=== PATIENT | male | born 1960 | race Caucasian/White ===

== ENCOUNTER 2017-02-12 22:21 | Inpatient (IN) | payer OTHER, MEDICARE ==
[~2017-02-12] VITALS: Ht 180.3 cm; Wt 85.0 kg
[2017-02-12 22:29] VITALS: BP 272/143; PULSE 114; RESP 26; TEMP 98.2; O2SAT 96
[2017-02-12] MEDS ORDERED: ATEN100T PO (22:37)
[2017-02-12] MEDS ORDERED: LISI-515 PO (22:37)
[2017-02-12] MEDS ORDERED: TEMA30CA PO (22:37)
[2017-02-12] MEDS ORDERED: ZOLP10TA3 PO (22:37)
[2017-02-12] MEDS ORDERED: ENDO10TA8 PO (22:37)
[2017-02-12] MEDS ORDERED: MORP1TAB26 PO (22:37)
[2017-02-12] MEDS ORDERED: SODIUM CHLORIDE 0.9% FLUSH 10 ML FLUSH IVF PRN (22:45)
--- NOTE | 2017-02-12 22:52 | RADRPT ---
EXAM DATE/TIME: 02/12/2017 22:34 [facility] COMPARISON: No previous studies available for comparison. INDICATIONS : Lower right chest pain. Coughing and vomiting blood. MEDICAL HISTORY : None. SURGICAL HISTORY : None. ENCOUNTER: Initial ACUITY: 1 day PAIN SCORE: 9/10 LOCATION: Bilateral chest FINDINGS: A single view of the chest demonstrates the lungs to be symmetrically aerated without evidence of mas s, infiltrate or effusion. The cardiomediastinal contours are unremarkable. Osseous structures are intact. CONCLUSION: The lungs are clear. Adeel Rowe MD on February 12, 2017 at 22:51 Board Certified Radiologist. This report was verified electronically.
[2017-02-12 23:15] VITALS: RESP 26; O2SAT 95
[2017-02-12 23:20] LABS: AUTOMATED NEUTROPHIL # 8.3 TH/MM3 (1.8-7.7); BASOPHIL % 0.2 % (0.0-2.0); EOSINOPHIL # 0.2 TH/MM3 (0-0.4); EOSINOPHIL % 1.7 % (0.0-4.0); HEMATOCRIT 45.6 % (39.0-51.0); HEMO FLAGS DIFF FINAL; LYMPH % 31.6 % (9.0-44.0); LYMPHOCYTE # 4.4 TH/MM3 (1.0-4.8); MEAN CELL VOLUME 91.6 FL (80.0-100.0); MEAN CORPUSCULAR HEMOGLOBIN 30.8 PG (27.0-34.0); MEAN CORPUSCULAR HGB CONC 33.6 % (32.0-36.0); MONO % 6.4 % (0.0-8.0); NEUT % 60.1 % (16.0-70.0); PLATELET COUNT 305 TH/MM3 (150-450); RED BLOOD COUNT 4.98 MIL/MM3 (4.50-5.90); RED CELL DISTRIBUTION WIDTH 13.5 % (11.6-17.2); WHITE BLOOD COUNT 13.9 TH/MM3 (4.0-11.0)
[2017-02-12] MEDS ORDERED: IOHEXOL 350 MG/ML 10 ML VIAL (for RAD DIAG) IV ONE (23:20)
[2017-02-12 23:21] VITALS: BP 232/124; PULSE 101; RESP 33; O2SAT 98
[2017-02-12] MEDS ORDERED: NITROGLYCERIN-DEXTROSE INJ 250 ML IV ONE (23:30)
--- NOTE | 2017-02-12 23:31 | RADRPT ---
EXAM DATE/TIME: 02/12/2017 23:07 [facility] COMPARISON: No previous studies available for comparison. INDICATIONS : Chest pain and hemoptysis. IV CONTRAST: 65 cc Omnipaque 350 (iohexol) IV RADIATION DOSE: 12.22 CTDIvol (mGy) MEDICAL HISTORY : Cardiovascular disease. SURGICAL HISTORY : None. ENCOUNTER: Initial ACUITY: 1 day PAIN SCALE: 7/10 LOCATION: Bilateral chest TECHNIQUE: Volumetric scanning of the chest was performed using a pulmonary embolism protocol MIP images were re constructed. Using automated exposure control and adjustment of the mA and/or kV according to patien t size, radiation dose was kept as low as reasonably achievable to obtain optimal diagnostic quality images. DICOM format image data is available electronically for review and comparison. Follow-up recommendations for incidentally detected pulmonary nodules are based at a minimum on nodul e size and patient risk factors according to Fleischner Society Guidelines. FINDINGS: Examination of the pulmonary vasculature demonstrates good filling of the main, lobar and segmental b ranches. There are no filling defects to suggest pulmonary embolism. Multiplanar reconstructions are also unremarkable. There is alveolar disease in the left lower lobe characteristic of pneumonia. Minimal right basilar o pacity is present as well. There are centrilobular emphysematous changes throughout both lungs. No pl eural effusions are identified. Examination of the mediastinum demonstrates no abnormally enlarged lymph nodes by CT criteria. No axi llary or hilar abnormalities are identified. Coronary artery calcifications are not present. There is a nodule in the left adrenal gland likely reflecting adenoma measuring 10 mm. CONCLUSION: 1. No evidence of pulmonary embolism. 2. Left lower lobe pneumonia Samm Clemente MD on February 12, 2017 at 23:26 Board Certified Radiologist. This report was verified electronically.
[2017-02-12 23:36] LABS: APTT (PATIENT) 25.8 SEC (24.3-30.1)
[2017-02-12 23:45] VITALS: BP 215/114; PULSE 95; RESP 23; O2SAT 95
[2017-02-12] MEDS ORDERED: AZITHROMYCIN INJ 500 MG in SODIUM CHLOR 0.9% 250 ML INJ 250 ML IV ONE (23:45)
[2017-02-12] MEDS ORDERED: cefTRIAXone INJ 1,000 MG in SODIUM CHLORIDE 0.9% INJ 100 ML IV ONE (23:45)
[2017-02-12 23:49] LABS: BICARBONATE 28.8 MEQ/L (21.0-32.0); POTASSIUM 3.5 MEQ/L (3.5-5.1)
[2017-02-12 23:51] LABS: INDIRECT BILIRUBIN 0.3 MG/DL (0.0-0.8); TOTAL BILIRUBIN ADULT 0.4 MG/DL (0.2-1.0)
[2017-02-13] VITALS (15 sets, daily range): BP systolic 116–211; BP diastolic 75–138; PULSE 60–96; RESP 16–24; TEMP 97.5–98.4; O2SAT 93–100
--- NOTE | 2017-02-13 00:31 | PD ---
HPI Chief Complaint: GI Complaint Time Seen by Provider: 22:35 Travel History International Travel<30 days: No Contact w/Intl Traveler<30days: No Traveled to known affect area: No History of Present Illness HPI The patient's 56 years old. He arrives due to hemoptysis for about 12 hours or so. It was first noticed while he was gardening. He denies chest pain and shortness of breath. The patient denies fever. No similar prior episode has occurred. the patient smokes about 2 packs of cigarettes per week. He denies a history of pulmonary disease of which he is aware. He states total quantity of bloody expectorant is about 1 ounce. He reports noncompliance with atenolol lisinopril for about 2 weeks. PFSH Past Medical History Heart Rhythm Problems: Yes Cardiovascular Problems: Yes Gastrointestinal Disorders: Yes Hypertension: Yes Medical other: Yes (CHRONIC PAIN) Respiratory: Yes Social History Alcohol Use: No Tobacco Use: Yes Substance Use: No Allergies-Medications (Allergen,Severity, Reaction): Coded Allergies: No Known Allergies (Unverified , 02/12/17) Reported Meds & Prescriptions Reported Meds & Active Scripts Active Reported Zolpidem (Zolpidem Tartrate) 10 Mg Tab 10 Mg PO HS PRN Temazepam 30 Mg Cap 30 Mg PO HS PRN Morphine ER (Morphine Sulfate) 60 Mg Tab 60 Mg PO BID Endocet (Oxycodone-Acetaminophen) 10-325 mg Tab 2 Tab PO Q6HR Lisinopril 20 Mg Tab 20 Mg PO DAILY Atenolol 100 Mg Tab 100 Mg PO DAILY Review of Systems Except as stated in HPI: all other systems reviewed are Neg Physical Exam Narrative GENERAL: Patient is 56 years old, speaking full sentences, occasional bloody expectorant SKIN: Warm and dry. HEAD: Atraumatic. Normocephalic. EYES: Pupils equal and round. No scleral icterus. No injection or drainage. ENT: No nasal bleeding or discharge. Mucous membranes pink and moist. NECK: Trachea midline. No JVD. CARDIOVASCULAR: Heart rate approximately 100. Regular rhythm. RESPIRATORY: Coarse breath sounds towards the base on the left. No tachypnea. GASTROINTESTINAL: Abdomen soft, non-tender, nondistended. Hepatic and splenic margins not palpable. MUSCULOSKELETAL: Extremities without clubbing, cyanosis, or edema. No obvious deformities. NEUROLOGICAL: Awake and alert. No obvious cranial nerve deficits. Motor grossly within normal limits. Five out of 5 muscle strength in the arms and legs. Normal speech. PSYCHIATRIC: Appropriate mood and affect; insight and judgment normal. Data Data Last Documented VS Vital Signs Date Time Temp Pulse Resp B/P Pulse Ox O2 Delivery O2 Flow Rate FiO2 02/13/17 00:00 88 24 184/104 98 Nasal Cannula 2 02/12/17 22:29 98.2 Vital signs reviewed Orders Complete Blood Count With Diff (02/12/17 22:35) Basic Metabolic Panel (Bmp) (02/12/17 22:35) D-Dimer (02/12/17 22:35) Iv Access Insert/Monitor (02/12/17 22:35) Electrocardiogram (02/12/17 22:35) Ecg Monitoring (02/12/17 22:35) Oximetry (02/12/17 22:35) Oxygen Administration (02/12/17 22:35) Chest, Single Ap (02/12/17 22:35) Sodium Chloride 0.9% Flush (Ns Flush) (02/12/17 22:45) Lipase (02/12/17 22:35) Ct Pulmonary Angiogram (02/12/17 22:35) Hepatic Functional Panel (02/12/17 22:35) Prothrombin Time / Inr (Pt) (02/12/17 22:35) Act Partial Throm Time (Ptt) (02/12/17 22:35) Nitroglycerin-Dextrose Inj (Nitroglyceri (02/12/17 23:30) Iohexol 350 Inj (Omnipaque 350 Inj) (02/12/17 23:20) Ceftriaxone Inj (Rocephin Inj) (02/12/17 23:45) Azithromycin Inj (Zithromax Inj) (02/12/17 23:45) Labs Laboratory Tests Test 02/12/17 23:00 White Blood Count 13.9 TH/MM3 Red Blood Count 4.98 MIL/MM3 Hemoglobin 15.3 GM/DL Hematocrit 45.6 % Mean Corpuscular Volume 91.6 FL Mean Corpuscular Hemoglobin 30.8 PG Mean Corpuscular Hemoglobin 33.6 % Concent Red Cell Distribution Width 13.5 % Platelet Count 305 TH/MM3 Mean Platelet Volume 6.5 FL Neutrophils (%) (Auto) 60.1 % Lymphocytes (%) (Auto) 31.6 % Monocytes (%) (Auto) 6.4 % Eosinophils (%) (Auto) 1.7 % Basophils (%) (Auto) 0.2 % Neutrophils # (Auto) 8.3 TH/MM3 Lymphocytes # (Auto) 4.4 TH/MM3 Monocytes # (Auto) 0.9 TH/MM3 Eosinophils # (Auto) 0.2 TH/MM3 Basophils # (Auto) 0.0 TH/MM3 CBC Comment DIFF FINAL Differential Comment Prothrombin Time 11.0 SEC Prothromb Time International 1.0 RATIO Ratio Activated Partial 25.8 SEC Thromboplast Time D-Dimer Quantitative (PE/DVT) 0.20 MG/L FEU Sodium Level 139 MEQ/L Potassium Level 3.5 MEQ/L Chloride Level 102 MEQ/L Carbon Dioxide Level 28.8 MEQ/L Anion Gap 8 MEQ/L Blood Urea Nitrogen 11 MG/DL Creatinine 0.80 MG/DL Estimat Glomerular Filtration 100 ML/MIN Rate Random Glucose 89 MG/DL Calcium Level 9.0 MG/DL Total Bilirubin 0.4 MG/DL Direct Bilirubin 0.1 MG/DL Indirect Bilirubin 0.3 MG/DL Aspartate Amino Transf 13 U/L (AST/SGOT) Alanine Aminotransferase 21 U/L (ALT/SGPT) Alkaline Phosphatase 88 U/L Total Protein 7.4 GM/DL Albumin 4.2 GM/DL Lipase 104 U/L [facility] Medical Decision Making Medical Screen Exam Complete: Yes Emergency Medical Condition: Yes Medical Record Reviewed: Yes Differential Diagnosis Massive hemoptysis, hemoptysis, pneumonia, anemia, hypertensive emergency Narrative Course CBC & BMP Diagram 02/12/17 23:00 LFTs normal Lipase normal INR 1.0 PTT 25.8 DDimer 0.20 Last Impressions Chest X-Ray 02/12/172234 Signed Impressions: Service Date/Time: February 22:34 - CONCLUSION: The lungs are clear. Adeel Rowe MD CT Angiography 02/12/172234 Signed Impressions: Service Date/Time: February 23:07 - CONCLUSION: 1. No evidence of pulmonary embolism. 2. Left lower lobe pneumonia Samm Clemente MD 2228 Hypertension on arrival 270/120 decreased 2321 BP decreased to 230/124, nitro drip started and blood pressure promptly decreased to 184/100 EKG reveals sinus tachycardia with a rate of [address] elevation or T-wave inversion cefepime/azithromycin started case d/w Dr House Critical Care Narrative Aggregate critical care time was 35 minutes. Time to perform other separately billable procedures was not included in the critical care time. My time did not include minutes spent treating any other patients simultaneously or on activities that did not directly contribute to the patient's treatment. The services I provided to this patient were to treat and/or prevent clinically significant deterioration that could result in: Multiorgan injury, hypertensive emergency I provided critical care services requiring my management, as noted below: Chart data review, documentation time, medication orders and management, vital sign assessments/reviewing monitor data, ordering and reviewing lab tests, ordering and interpreting/reviewing x-rays and diagnostic studies, care of the patient and discussion of the patient with the admitting physicians. Diagnosis Primary Impression: Hypertensive emergency Additional Impression: PNA (pneumonia) Qualified Code: J18.1 - Pneumonia of left lower lobe due to infectious organism Admitting Information Admitting Physician Requests: Admit Nolberto Cee MD Feb 13, 2017 00:30
[2017-02-13] MEDS ORDERED: LACTULOSE SYRUP 20 GM/30 ML CUP PO PRN (00:45)
[2017-02-13] MEDS ORDERED: BISACODYL 10 MG SUPP RECTAL PRN (00:45)
[2017-02-13] MEDS ORDERED: SODIUM CHLORIDE 0.9% FLUSH 10 ML FLUSH IV FLUSH PRN (00:45)
[2017-02-13] MEDS ORDERED: MORPHINE SULFATE 4 MG/ML INJ IV PRN (00:45)
[2017-02-13] MEDS ORDERED: ONDANSETRON HCL 4 MG/2 ML VIAL IVP PRN (00:45)
[2017-02-13] MEDS ORDERED: SENNOSIDES 8.6 MG TAB PO PRN (00:45)
[2017-02-13] MEDS ORDERED: ACETAMINOPHEN/HYDROcodone 325 MG/5 MG TAB PO PRN (00:45)
[2017-02-13] MEDS ORDERED: ACETAMINOPHEN 325 MG TAB PO PRN (00:45)
[2017-02-13] MEDS ORDERED: MAGNESIUM HYDROXIDE SUSP 30 ML CUP PO PRN (00:45)
[2017-02-13] MEDS ORDERED: ZOLPIDEM TARTRATE 10 MG TAB PO PRN (01:00)
[2017-02-13] MEDS ORDERED: CHLORHEXIDINE GLUCONATE 2 % 1 PACK (2 CLOTHS) TOP PRN (02:00)
[2017-02-13] MEDS ORDERED: NITROGLYCERIN-DEXTROSE INJ 250 ML IV PRN (02:00)
[2017-02-13] MEDS ORDERED: MISCELLANEOUS NURSING INFORMATION XX SCH (02:00)
[2017-02-13] MEDS: CHLORHEXIDINE GLUCONATE 2 % 1 PACK (2 CLOTHS) TOP SCH (03:37)
--- NOTE | 2017-02-13 03:50 | HHI.HP ---
HPI Service [facility] Primary Care Physician Elliot Alejandra MD Admission Diagnosis Hypertensive Emergency; Hemoptysis Diagnoses: (1) Hypertensive urgency Diagnosis: Principal (2) PNA (pneumonia) Diagnosis: Principal (3) Hemoptysis Diagnosis: Principal (4) Tobacco abuse Diagnosis: Principal Travel History International Travel<30 Days: No Contact w/Intl Traveler <30 Da: No Traveled to Known Affected Are: No History of Present Illness This is a 56-year-old male with a PMH of HTN, Chronic Back Pain and Tobacco Abuse who presented to the ER with complaints of hemoptysis starting earlier today. Patient with multiple other complaints, reports onset of right flank and RLQ pain 1wk ago and believed he was "having a GI Bleed", however denies h/ o GI Bleed in the past, no melena, no BRBPR. Then states he went outside to do some gardening when "humidity hit me" and caused him to cough, noted hemoptysis w/ small amount of blood at which time he states he believed "I was septic". When asked about pt's knowledge of medical terminology, he states he studied pathology, however he's not a pathologist. On arrival, BP 272/143, HR 114. States his BP is "always high", on multiple medications however states he stopped all meds 1wk ago due to abdominal pain. Started on Nitro gtt in ER with improvement of BP, currently 174/103, HR 96. WBC 13.9. Chemistry unremarkable. INR normal. D-dimer negative. CXR with no acute findings. CTA Pulm negative for PE, positive for LLL PNA. S/p Rocephin/Zithro in ER. Review of Systems Except as stated in HPI: all other systems reviewed are Neg ROS: 14 point review of systems otherwise negative. Past Family Social History Past Medical History PMH: HTN, Chronic Back Pain and Tobacco Abuse Past Surgical History PAST SURGICAL HISTORY: Orthopedic Surgery Allergies: Coded Allergies: No Known Allergies (Unverified , 02/12/17) Family History PAST FAMILY HISTORY: Reviewed. No h/o DM or CAD Social History PAST SOCIAL HISTORY: Negative for alcohol or drugs. +Tobacco Abuse. Physical Exam Vital Signs Vital Signs Date Time Temp Pulse Resp B/P Pulse Ox O2 Delivery O2 Flow Rate FiO2 02/13/17 01:15 96 22 174/103 98 Nasal Cannula 2 02/13/17 01:00 95 22 205/94 97 Nasal Cannula 2 02/13/17 00:25 94 23 188/104 98 Nasal Cannula 2 02/13/17 00:00 88 24 184/104 98 Nasal Cannula 2 02/12/17 23:45 95 23 215/114 95 Nasal Cannula 2 02/12/17 23:22 98 Nasal Cannula 2 02/12/17 23:21 101 33 232/124 98 Nasal Cannula 2 02/12/17 23:15 26 95 Room Air 02/12/17 22:29 98.2 114 26 272/143 96 Physical Exam PE: GENERAL: Middle-aged white male in no acute distress. HEENT: PERRLA, EOMI. No scleral icterus or conjunctival pallor. No lid lag or facial droop. CARDIOVASCULAR: Regular rate and rhythm. No obvious murmurs to auscultation. No chest tenderness to palpation. RESPIRATORY: No obvious rhonchi or wheezing. Clear to auscultation. Breath sounds equal bilaterally. GASTROINTESTINAL: Abdomen soft, non-tender, nondistended. BS normal. MUSCULOSKELETAL: Extremities without clubbing, cyanosis, or edema. No obvious deformities. NEUROLOGICAL: Awake, alert and oriented x4. No focal neurologic deficits. Moving both upper and lower extremities spontaneously. Laboratory Laboratory Tests Test 02/12/17 23:00 White Blood Count 13.9 Red Blood Count 4.98 Hemoglobin 15.3 Hematocrit 45.6 Mean Corpuscular Volume 91.6 Mean Corpuscular Hemoglobin 30.8 Mean Corpuscular Hemoglobin 33.6 Concent Red Cell Distribution Width 13.5 Platelet Count 305 Mean Platelet Volume 6.5 Neutrophils (%) (Auto) 60.1 Lymphocytes (%) (Auto) 31.6 Monocytes (%) (Auto) 6.4 Eosinophils (%) (Auto) 1.7 Basophils (%) (Auto) 0.2 Neutrophils # (Auto) 8.3 Lymphocytes # (Auto) 4.4 Monocytes # (Auto) 0.9 Eosinophils # (Auto) 0.2 Basophils # (Auto) 0.0 CBC Comment DIFF FINAL Differential Comment Prothrombin Time 11.0 Prothromb Time International 1.0 Ratio Activated Partial 25.8 Thromboplast Time D-Dimer Quantitative (PE/DVT) 0.20 Sodium Level 139 Potassium Level 3.5 Chloride Level 102 Carbon Dioxide Level 28.8 Anion Gap 8 Blood Urea Nitrogen 11 Creatinine 0.80 Estimat Glomerular Filtration 100 Rate Random Glucose 89 Calcium Level 9.0 Total Bilirubin 0.4 Direct Bilirubin 0.1 Indirect Bilirubin 0.3 Aspartate Amino Transf 13 (AST/SGOT) Alanine Aminotransferase 21 (ALT/SGPT) Alkaline Phosphatase 88 Total Protein 7.4 Albumin 4.2 Lipase 104 Result Diagram: 02/12/17229902/12/172299 Assessment and Plan Problem List: (1) Hypertensive urgency ICD Code: I16.0 Status: Acute (2) PNA (pneumonia) ICD Code: J18.9 Status: Acute (3) Hemoptysis ICD Code: R04.2 Status: Acute (4) Tobacco abuse ICD Code: Z72.0 Status: Acute Assessment and Plan A/P: 1. Hypertensive Urgency: Secondary to Non-compliance, reports stopping all BP medications 1wk ago. BP 272/143, HR 114, s/p Nitro gtt in ER, currently BP 174/ 103, HR 96. Resume home medications, wean off Nitro gtt as tolerated. Pt counselled on importance of compliance w/ medications and close follow up w/ PCP for possible adjustment of meds as outpatient. 2. PNA: CXR w/ no acute findings, CTA Pulm negative for PE, LLL PNA, images reviewed by me. S/p Rocephin/Zithro in ER, will continue w/ IV Abx, DuoNeb prn. 3. Hemoptysis: reports episode of small hemoptysis, CTA negative for PE as above, no h/o or evidence of CHF, likely secondary to acute PNA. Check Sputum/ Cultures, continue w/ IV Abx as above. 4. Tobacco Abuse: Pt counselled, NicoDerm/Ativan prn if needed. 5. DVT Prophylaxis: SCD/Teds. 6. Social work for d/c planning as needed. 7. Case discussed w/ ER physician at length. Physician Certification 2 Midnight Certification Type: Admission for Inpatient Services Order for Inpatient Services The services are ordered in accordance with Medicare regulations or non- Medicare payer requirements, as applicable. In the case of services not specified as inpatient-only, they are appropriately provided as inpatient services in accordance with the 2-midnight benchmark. Estimated LOS (days): 2 days is the estimated time the patient will need to remain in the hospital, assuming treatment plan goals are met and no additional complications. Post-Hospital Plan: Not yet determined Problem Qualifiers (1) PNA (pneumonia): Qualified Code: J18.1 - Pneumonia of left lower lobe due to infectious organism Brittany House MD Feb 13, 2017 03:50
[2017-02-13] MEDS ORDERED: ENALAPRILAT 1.25 MG/ML VIAL IV PUSH PRN (07:45)
[2017-02-13] MEDS: BUDESONIDE-FORMOTEROL 160/4.5 MCG INHALER INH SCH ×2 (08:25→22:03)
[2017-02-13] MEDS: DOCUSATE SODIUM 50 MG/SENNA 8.6 MG TAB PO SCH ×2 (08:26→21:00)
[2017-02-13] MEDS: LISINOPRIL 20 MG TAB PO SCH (08:26)
[2017-02-13] MEDS: ATENOLOL 100 MG TAB PO SCH (08:26)
[2017-02-13] MEDS: SODIUM CHLORIDE 0.9% FLUSH 10 ML FLUSH IV FLUSH SCH ×2 (08:26→22:10)
[2017-02-13] MEDS ORDERED: NALOXONE HCL 0.4 MG/ML AMP IV PRN (09:00)
[2017-02-13] MEDS: MORPHINE SULFATE 60 MG CONTROLLED RELEASE TAB PO SCH ×2 (09:29→22:00)
--- NOTE | 2017-02-13 09:32 | EKG ---
Date Performed: 02/12/2017 Time Performed: 22:39:07 PTAGE: 56 years EKG: SINUS TACHYCARDIA POSSIBLE LEFT ATRIAL ENLARGEMENT ABNORMAL RHYTHM ECG NO PREVIOUS TRACING DOCTOR: Samm Christianson Interpretating Date/Time 02/13/2017 09:30:55
[2017-02-13] MEDS: oxyCODONE/ACETAMINOPHEN 10 MG/325 MG TAB PO SCH ×3 (12:23→23:09)
--- NOTE | 2017-02-13 20:37 | RADRPT ---
EXAM DATE/TIME: 02/13/2017 20:06 [facility] COMPARISON: No previous studies available for comparison. INDICATIONS : Pain in lower back after rehabing on exercise ball. Patient states pain radiates to right groin area and pain originates in L5 area. MEDICAL HISTORY : None. SURGICAL HISTORY : None. ENCOUNTER: Initial ACUITY: 2 days PAIN SCORE: 8/10 LOCATION: L-Spine FINDINGS: Two view examination was performed. There are five non-rib bearing vertebral bodies. The vertebral bodies are in normal alignment without evidence of subluxation or scoliosis. The disc spaces are nadeem ntained. The pedicles are intact. Bony mineralization is normal. No fracture is identified. CONCLUSION: No evidence of compression deformity or spondylolisthesis. Adeel Rowe MD on February 13, 2017 at 20:35 Board Certified Radiologist. This report was verified electronically.
[2017-02-13] MEDS: TEMAZEPAM 15 MG CAP PO PRN (22:10)
[2017-02-13] MEDS: cefTRIAXone INJ 1,000 MG in SODIUM CHLORIDE 0.9% INJ 100 ML IV SCH (22:11)
[2017-02-13] MEDS: AZITHROMYCIN INJ 500 MG in SODIUM CHLOR 0.9% 250 ML INJ 250 ML IV SCH (23:09)
[2017-02-14] VITALS (8 sets, daily range): BP systolic 130–166; BP diastolic 69–102; PULSE 53–77; RESP 16–19; TEMP 96–98.7; O2SAT 93–99
[2017-02-14] MEDS: CHLORHEXIDINE GLUCONATE 2 % 1 PACK (2 CLOTHS) TOP SCH ×2 (03:46→21:52)
[2017-02-14] MEDS: oxyCODONE/ACETAMINOPHEN 10 MG/325 MG TAB PO SCH ×4 (05:29→23:03)
[2017-02-14 06:19] LABS: AUTOMATED NEUTROPHIL # 6.4 TH/MM3 (1.8-7.7); BASOPHIL % 0.4 % (0.0-2.0); EOSINOPHIL # 0.3 TH/MM3 (0-0.4); EOSINOPHIL % 2.5 % (0.0-4.0); HEMATOCRIT 38.4 % (39.0-51.0); HEMO FLAGS DIFF FINAL; LYMPH % 36.4 % (9.0-44.0); LYMPHOCYTE # 4.3 TH/MM3 (1.0-4.8); MEAN CELL VOLUME 93.5 FL (80.0-100.0); MEAN CORPUSCULAR HEMOGLOBIN 30.8 PG (27.0-34.0); MONO % 6.5 % (0.0-8.0); NEUT % 54.2 % (16.0-70.0); PLATELET COUNT 259 TH/MM3 (150-450); RED BLOOD COUNT 4.11 MIL/MM3 (4.50-5.90); RED CELL DISTRIBUTION WIDTH 13.8 % (11.6-17.2); WHITE BLOOD COUNT 11.9 TH/MM3 (4.0-11.0)
[2017-02-14 07:15] LABS: ALKALINE PHOSPHATASE 72 U/L (45-117); ALT (GPT) 14 U/L (12-78); ANION GAP 8 MEQ/L (5-15); AST (GOT) 11 U/L (15-37); BLOOD UREA NITROGEN 17 MG/DL (7-18); CHLORIDE 104 MEQ/L (98-107); GLOMERULAR FILTRATION RATE 84 ML/MIN (>89); POTASSIUM 4.2 MEQ/L (3.5-5.1); SODIUM (NA) 139 MEQ/L (136-145); TOTAL BILIRUBIN ADULT 0.5 MG/DL (0.2-1.0)
[2017-02-14] MEDS: DOCUSATE SODIUM 50 MG/SENNA 8.6 MG TAB PO SCH ×2 (08:40→20:29)
[2017-02-14] MEDS: ATENOLOL 100 MG TAB PO SCH (08:40)
[2017-02-14] MEDS: SODIUM CHLORIDE 0.9% FLUSH 10 ML FLUSH IV FLUSH SCH ×2 (08:40→20:30)
[2017-02-14] MEDS: LISINOPRIL 20 MG TAB PO SCH (08:40)
[2017-02-14] MEDS: MORPHINE SULFATE 60 MG CONTROLLED RELEASE TAB PO SCH ×2 (08:40→20:28)
[2017-02-14] MEDS: BUDESONIDE-FORMOTEROL 160/4.5 MCG INHALER INH SCH ×2 (08:42→20:27)
[2017-02-14] MEDS ORDERED: DIATRIZOATE MEGLUM/DIATRIZOATE SOD 9 ML CUP PO ONE (09:30)
[2017-02-14] MEDS ORDERED: PNEUMOCOCCAL POLYVALENT INJ 25 MCG/0.5 ML SYR IM ONE (10:00)
[2017-02-14] MEDS ORDERED: INFLUENZA VIRUS VACCINE (QUADRIVALENT) 0.5 ML SYR IM ONE (10:00)
--- NOTE | 2017-02-14 10:21 | HHI.PR ---
Subjective Remarks Blood pressure control improving. Patient was coughing up blood 3 yesterday but has no hemoptysis thus far today. Ambulation still difficult due to abdominal and back pain. Lumbar spine shows no acute findings such as compression fracture. CT abdomen is pending. Objective Vital Signs Date Time Temp Pulse Resp B/P Pulse Ox O2 Delivery O2 Flow Rate FiO2 02/14/17 08:00 69 02/14/17 08:00 97.2 63 17 134/77 97 02/14/17 06:20 55 02/14/17 04:00 98.7 63 16 130/74 95 02/14/17 00:00 97.6 77 16 133/87 94 02/13/17 20:00 97.5 64 16 116/76 93 02/13/17 18:00 71 02/13/17 16:00 61 02/13/17 16:00 98.4 61 22 135/88 100 02/13/17 14:00 64 02/13/17 12:00 60 02/13/17 12:00 98.3 60 18 133/75 97 I/O 02/13/17 02/13/17 02/13/17 02/14/17 02/14/17 02/14/17 07:00 15:00 23:00 07:00 15:00 23:00 Intake Total 141 ml 504 ml 300 ml Output Total 500 ml 350 ml Balance 141 ml 4 ml -50 ml Intake Oral 100 ml 500 ml IV Total 41 ml 4 ml 300 ml Output Urine Total 500 ml 350 ml # Voids 0 1 0 # Bowel Movements 0 Result Diagram: 02/14/17 0504 02/14/17 0504 Objective Remarks GENERAL: NAD, A&Ox3 HEAD: Normocephalic. NECK: Supple, trachea midline. No lymphadenopathy. EYES: No scleral icterus. No injection or drainage. CARDIOVASCULAR: Regular rate and rhythm without murmurs, gallops, or rubs. RESPIRATORY: Breath sounds equal bilaterally. No accessory muscle use. GASTROINTESTINAL: Abdomen soft, non-tender, nondistended. MUSCULOSKELETAL: No cyanosis, or edema. Tenderness at back. SKIN: Warm and dry. NEURO: No focal neurological deficitis. A/P Problem List: (1) PNA (pneumonia) ICD Code: J18.9 (2) Hypertensive urgency ICD Code: I16.0 (3) Hemoptysis ICD Code: R04.2 (4) Hypertensive emergency ICD Code: I16.1 (5) Tobacco abuse ICD Code: Z72.0 Assessment and Plan Assessment and Plan 56-year-old male admitted secondary to hemoptysis and hypertensive emergency. He is discovered to have pneumonia. Hemoptysis Improving Follow till hemoptysis is resolved. Avoiding blood thinners Hypertensive emergency Etiology for hemoptysis may be related to hypertension Blood pressure medications reinitiated and adjusted and currently patient has good control. Monitor for any recurrence Community-acquired pneumonia Continue Rocephin and azithromycin Follow CBC White blood cell count is improving thus far Back pain Pelvic pain, abdominal pain Lumbar x-rays show no etiology CT abdomen pending Nicotine dependence NicoDerm as needed DVT prophylaxis SCDs Problem Qualifiers (1) PNA (pneumonia): Qualified Code: J18.1 - Pneumonia of left lower lobe due to infectious organism Nolberto Corea MD Feb 14, 2017 10:21
[2017-02-14] MEDS ORDERED: IOHEXOL 350 MG/ML 10 ML VIAL (for RAD DIAG) IV ONE (11:52)
--- NOTE | 2017-02-14 12:10 | RADRPT ---
EXAM DATE/TIME: 02/14/2017 11:50 [facility] COMPARISON: CT PULMONARY ANGIOGRAM, February 12, 2017, 23:07. INDICATIONS : Abdomen pain. IV CONTRAST: 97 cc Omnipaque 350 (iohexol) IV ORAL CONTRAST: Prescribed oral contrast ingested. RADIATION DOSE: 14.39 CTDIvol (mGy) MEDICAL HISTORY : Hernia. Hypertension. Chronic obstructive pulmonary disease. SURGICAL HISTORY : Hernia repair. ENCOUNTER: Initial ACUITY: 3 days PAIN SCALE: 5/10 LOCATION: Bilateral lower quadrant TECHNIQUE: Volumetric scanning of the abdomen and pelvis was performed. Using automated exposure control and ad justment of the mA and/or kV according to patient size, radiation dose was kept as low as reasonably achievable to obtain optimal diagnostic quality images. DICOM format image data is available electro nically for review and comparison. FINDINGS: LOWER LUNGS: Mild infiltrate density left lung base. LIVER: Liver is slightly fatty infiltrated. No focal hepatic lesion. SPLEEN: Normal size without lesion. PANCREAS: Within normal limits. KIDNEYS: Normal in size and shape. There is no mass, stone or hydronephrosis. ADRENAL GLANDS: Within normal limits. VASCULAR: Abdominal aorta is tortuous and mildly atherosclerotic. No aneurysm. BOWEL/MESENTERY: The stomach, small bowel, and colon demonstrate no acute abnormality. There is no free intraperitone al air or fluid. ABDOMINAL WALL: Within normal limits. RETROPERITONEUM: There is no lymphadenopathy. BLADDER: No wall thickening or mass. REPRODUCTIVE: Within normal limits. INGUINAL: There is no lymphadenopathy or hernia. MUSCULOSKELETAL: No acute bony abnormality demonstrated. CONCLUSION: 1. No obstruction or acute inflammatory changes. 2. Mild fatty infiltration of the liver. 3. Tortuosity and mild atherosclerosis of the abdominal aorta. 4. Mild left base infiltrate again seen. Juan Zhao MD on February 14, 2017 at 12:06 Board Certified Radiologist. This report was verified electronically.
[2017-02-14] MEDS: cefTRIAXone INJ 1,000 MG in SODIUM CHLORIDE 0.9% INJ 100 ML IV SCH (20:31)
[2017-02-14] MEDS: AZITHROMYCIN INJ 500 MG in SODIUM CHLOR 0.9% 250 ML INJ 250 ML IV SCH (23:00)
[2017-02-14] MEDS: TEMAZEPAM 15 MG CAP PO PRN (23:01)
[2017-02-15] VITALS (9 sets, daily range): BP systolic 132–171; BP diastolic 75–113; PULSE 50–78; RESP 18–20; TEMP 96.2–98.1; O2SAT 95–99
[2017-02-15] MEDS: oxyCODONE/ACETAMINOPHEN 10 MG/325 MG TAB PO SCH ×4 (06:02→23:15)
[2017-02-15] MEDS ORDERED: GADODIAMIDE PF 287 MG/ML 20 ML VIAL (for RAD MRI) IV ONE (08:12)
[2017-02-15] MEDS: SODIUM CHLORIDE 0.9% FLUSH 10 ML FLUSH IV FLUSH SCH ×2 (08:32→19:50)
[2017-02-15] MEDS: DOCUSATE SODIUM 50 MG/SENNA 8.6 MG TAB PO SCH ×2 (08:32→19:53)
[2017-02-15] MEDS: ATENOLOL 100 MG TAB PO SCH (08:32)
[2017-02-15] MEDS: LISINOPRIL 20 MG TAB PO SCH (08:32)
[2017-02-15] MEDS: MORPHINE SULFATE 60 MG CONTROLLED RELEASE TAB PO SCH ×2 (08:32→19:50)
[2017-02-15] MEDS: BUDESONIDE-FORMOTEROL 160/4.5 MCG INHALER INH SCH ×2 (08:32→19:52)
--- NOTE | 2017-02-15 08:35 | RADRPT ---
EXAM DATE/TIME: 02/15/2017 07:49 [facility] COMPARISON: CT ABDOMEN & PELVIS W CONTRAST, February 14, 2017, 11:50. SPINE LUMBAR LTD (AP & LAT), February 13, 2017 , 20:06. INDICATIONS : Pain. Right lower back and hip. CONTRAST: 17 cc Omniscan (gadodiamide) IV MEDICAL HISTORY : Hypertension. SURGICAL HISTORY : Orthopedic. ENCOUNTER: Initial ACUITY: 3 day PAIN SCORE: 2/10 LOCATION: Paraspinal TECHNIQUE: Multiplanar multisequence MRI of the lumbar spine was performed with and without contrast. FINDINGS: The most caudal appearing lumbar vertebra is numbered as L5. VERTEBRAE: Bone marrow signal is within normal limits. No fracture or compression deformity is present. There is minimal anterolisthesis of L3 on L4. CONUS: Normal level and configuration. POST CONTRAST: No abnormal areas of contrast enhancement are seen. T12-L1: No disc herniation, canal stenosis, or neural foraminal stenosis. L1-L2: No disc herniation, canal stenosis, or neural foraminal stenosis. L2-L3: There is a mild to moderate size diffuse disc bulge with mild facet and ligamentum flavum hypertrophy . Lateral recesses are effaced. There is no significant spinal canal stenosis or neural foraminal av rowing. L3-L4: There is severe facet and ligamentum flavum hypertrophy with fluid in the facet joints and minimal as sociated anterolisthesis. A moderate to large diffuse disc bulge is present with central disc protrus ion. There is a moderate spinal canal stenosis with near complete loss of CSF signal around the nerve roots. There is mild neural foraminal narrowing bilaterally. L4-L5: There is a moderate size diffuse disc bulge with mild facet and ligamentum flavum hypertrophy. Latera l recesses are effaced. No spinal canal stenosis or neuroforaminal narrowing is identified. L5-S1: There is a central to left paracentral disc protrusion effacing left lateral recess and likely with m ass effect on the descending left S1 nerve root. Otherwise, spinal canal is not significantly narrowe d. There is no neuroforaminal narrowing. There is facet hypertrophy bilaterally, right greater than l eft. The visualized paraspinous structures demonstrate no acute finding. CONCLUSION: 1. Moderate multilevel degenerative change throughout the lumbar spine. At L3-4 there is severe facet hypertrophy causing minimal anterolisthesis and the facet hypertrophy along with a diffuse disc bulg e causes moderate spinal canal stenosis. 2. There is a moderate size central left paracentral disc protrusion at L5-S1 with mass effect on the left S1 nerve root. Juan Kelly MD on February 15, 2017 at 8:28 Board Certified Radiologist. This report was verified electronically.
[2017-02-15] MEDS: cloNIDine HCL 0.1 MG TAB PO PRN (12:27)
--- NOTE | 2017-02-15 14:43 | HHI.PR ---
Subjective Remarks No improvement in intermittent lower back and abdominal pains. GI workup was negative. MRI of the spine shows an area of moderate stenosis and an area of mass effect in the lumbosacral region. Patient can also elicit symptoms by standing on his left foot or by doing a straight leg raise of either leg. Blood pressures are not yet controlled. Patient requests to be evaluated for renal artery stenosis. He has coughed up some blood today but this is thicker and darker and appears to be residual/old blood from his previous hemoptysis. Objective Vital Signs Date Time Temp Pulse Resp B/P Pulse Ox O2 Delivery O2 Flow Rate FiO2 02/15/17 14:34 163/88 02/15/17 12:00 98.1 61 18 171/113 98 02/15/17 08:00 96.7 59 18 169/91 97 02/15/17 08:00 Room Air 02/15/17 08:00 69 02/15/17 04:28 96.9 63 18 148/75 95 02/15/17 00:34 96.6 78 18 146/83 97 02/14/17 20:00 Room Air 02/14/17 20:00 97.1 70 18 138/80 97 02/14/17 20:00 53 02/14/17 16:00 97.9 63 18 140/78 97 I/O 02/14/17 02/14/17 02/14/17 02/15/17 02/15/17 02/15/17 07:00 15:00 23:00 07:00 15:00 23:00 Intake Total 300 ml 240 ml Output Total 350 ml 500 ml 300 ml Balance -50 ml -260 ml -300 ml Intake Oral 240 ml IV Total 300 ml Output Urine Total 350 ml 500 ml 300 ml # Voids 1 # Bowel Movements 0 0 Result Diagram: 02/14/17 0504 02/14/17 0504 Objective Remarks GENERAL: NAD, A&Ox3 HEAD: Normocephalic. NECK: Supple, trachea midline. No lymphadenopathy. EYES: No scleral icterus. No injection or drainage. CARDIOVASCULAR: Regular rate and rhythm without murmurs, gallops, or rubs. RESPIRATORY: Breath sounds equal bilaterally. No accessory muscle use. GASTROINTESTINAL: Abdomen soft, non-tender, nondistended. MUSCULOSKELETAL: No cyanosis, or edema. Tenderness at back. SKIN: Warm and dry. NEURO: No focal neurological deficitis. A/P Problem List: (1) PNA (pneumonia) ICD Code: J18.9 (2) Hypertensive urgency ICD Code: I16.0 (3) Hemoptysis ICD Code: R04.2 (4) Hypertensive emergency ICD Code: I16.1 (5) Tobacco abuse ICD Code: Z72.0 Assessment and Plan Assessment and Plan 56-year-old male admitted secondary to hemoptysis and hypertensive emergency. He is discovered to have pneumonia. Obtain renal SPECT scan to evaluate for renal artery stenosis. Consult neurosurgery regarding the patient's lumbosacral findings on MRI and persistent symptoms. Continue to follow blood pressures. Blood pressure treatments adjusted. Hemoptysis Improving Follow till hemoptysis is resolved. Avoiding blood thinners Hypertensive emergency Etiology for hemoptysis may be related to hypertension Blood pressure medications reinitiated and adjusted and currently patient has good control. Monitor for any recurrence Community-acquired pneumonia Continue Rocephin and azithromycin Follow CBC White blood cell count is improving thus far Back pain Pelvic pain, abdominal pain Lumbar x-rays show no etiology CT abdomen pending Nicotine dependence NicoDerm as needed DVT prophylaxis SCDs Problem Qualifiers (1) PNA (pneumonia): Qualified Code: J18.1 - Pneumonia of left lower lobe due to infectious organism Nolberto Corea MD Feb 15, 2017 14:43
[2017-02-15] MEDS: cefTRIAXone INJ 1,000 MG in SODIUM CHLORIDE 0.9% INJ 100 ML IV SCH (21:59)
[2017-02-15] MEDS: TEMAZEPAM 15 MG CAP PO PRN (21:59)
[2017-02-15] MEDS: AZITHROMYCIN INJ 500 MG in SODIUM CHLOR 0.9% 250 ML INJ 250 ML IV SCH (23:12)
[2017-02-16 04:00] VITALS: BP 183/82; PULSE 58; RESP 20; TEMP 95.7; O2SAT 98
[2017-02-16] MEDS: CHLORHEXIDINE GLUCONATE 2 % 1 PACK (2 CLOTHS) TOP SCH ×2 (04:00→23:35)
[2017-02-16] MEDS: oxyCODONE/ACETAMINOPHEN 10 MG/325 MG TAB PO SCH ×4 (05:39→23:41)
[2017-02-16 08:00] VITALS: BP 223/120; PULSE 59; RESP 18; TEMP 97.7; O2SAT 100
[2017-02-16] MEDS: BUDESONIDE-FORMOTEROL 160/4.5 MCG INHALER INH SCH ×2 (08:19→20:28)
[2017-02-16] MEDS: LISINOPRIL 20 MG TAB PO SCH (08:19)
[2017-02-16] MEDS: DOCUSATE SODIUM 50 MG/SENNA 8.6 MG TAB PO SCH ×2 (08:19→20:27)
[2017-02-16 08:20] VITALS: PULSE 59
[2017-02-16] MEDS: MORPHINE SULFATE 60 MG CONTROLLED RELEASE TAB PO SCH ×2 (08:20→20:27)
[2017-02-16] MEDS: SODIUM CHLORIDE 0.9% FLUSH 10 ML FLUSH IV FLUSH SCH ×2 (08:20→20:28)
[2017-02-16] MEDS: ATENOLOL 100 MG TAB PO SCH (08:20)
[2017-02-16 12:00] VITALS: BP 179/91; PULSE 52; RESP 18; TEMP 96.9; O2SAT 99
--- NOTE | 2017-02-16 13:40 | PD.CONS ---
[facility] Service Neurosurgery Consult Requested By [place] emergency department Reason for Consult Low back pain with radiculopathy Primary Care Physician Elliot Alejandra MD History of Present Illness This is a 56-year-old male with history of HTN, Chronic Back Pain who presented to the ER with complaints of hemoptysis since today. He reports in addition multiple other complaints, new onset of right flank and RLQ pain 1wk ago and believed he was "having a GI Bleed". Denies melena. He noted new onset of hemoptysis w/ small amount of blood. On arrival, his blood pressure was 272/143, HR 114. States his BP is "always high", on multiple medications however states he stopped all meds 1wk ago due to abdominal pain. Started on Nitro drip in ER with improvement. CTA Pulm negative for PE, positive for left lower lobe pneumonia. He is admitting physician was concerned about possible renal artery stenosis and order an MR angiography of the renal artery. He underwent an MRI of the lumbar spine which show significant spondylosis with bulging disc and stenosis at L4 5 and L5-S1. Neurosurgical consultation was requested Review of Systems Constitutional: DENIES: Diaphoretic episodes, Fatigue, Fever, Weight gain, Weight loss, Chills, Dizziness, Change in appetite, Night Sweats Endocrine: DENIES: Heat/cold intolerance, Polydipsia, Polyuria, Polyphagia Eyes: DENIES: Blurred vision, Diplopia, Eye inflammation, Eye pain, Vision loss , Photosensitivity, Double Vision Ears, nose, mouth, throat: DENIES: Tinnitus, Hearing loss, Vertigo, Nasal discharge, Oral lesions, Throat pain, Hoarseness, Ear Pain, Running Nose, Epistaxis, Sinus Pain, Toothache, Odynophagia Respiratory: COMPLAINS OF: Apneas, Sputum production, DENIES: Cough, Snoring, Wheezing, Hemoptysis, Shortness of breath Cardiovascular: DENIES: Palpitations, Syncope, Dyspnea on Exertion, PND, Lower Extremity Edema, Orthopnea, Claudication Gastrointestinal: DENIES: Abdominal pain, Black stools, Bloody stools, Constipation, Diarrhea, Nausea, Vomiting, Difficulty Swallowing, Anorexia Genitourinary: DENIES: Sexual dysfunction, Urinary frequency, Urinary incontinence, Urgency, Hematuria, Dysuria, Nocturia, Penile Discharge, Testicular Pain, Testicular Swelling Musculoskeletal: COMPLAINS OF: Joint pain, Back pain, DENIES: Muscle aches, Stiffness, Joint Swelling, Neck pain Integumentary: DENIES: Abnormal pigmentation, Nail changes, Pruritus, Rash Hematologic/lymphatic: DENIES: Bruising, Lymphadenopathy Immunologic/allergic: DENIES: Eczema, Urticaria Neurologic: DENIES: Abnormal gait, Headache, Localized weakness, Paresthesias, Seizures, Speech Problems, Tremor, Poor Balance Past Family Social History Allergies: Coded Allergies: No Known Allergies (Unverified , 02/12/17) Past Medical History HTN, Chronic Back Pain Active Ordered Medications Current Medications Sodium Chloride 2 ml 2 ml UNSCH PRN IVF FLUSH AFTER USING IV ACCESS; Start 02/12 at 22:45; Stop 02/13/17 at 07:59; Status DC Nitroglycerin/ Dextrose (Nitroglycerin-Dextrose Inj) 250 ml @ 0 mls/hr TITRATE ONCE IV Last administered on 02/12/17 23:40; Start 02/12/17 at 23:30; Stop at 23:31; Status DC Iohexol 65 ml 65 ml STK-MED ONCE IV Last administered on 02/12/17 23:20; Start 02/12/17 at 23:20; Stop 02/12/17 at 23:21; Status DC Ceftriaxone Sodium 1000 mg/ Sodium Chloride 100 ml @ 200 mls/hr ONCE ONCE IV Last administered on 02/13/17 00:29; Start 02/12/17 at 23:45; Stop 02/13/17 at 00: 14; Status DC Azithromycin 500 mg/Sodium Chloride 250 ml @ 250 mls/hr ONCE ONCE IV Last administered on 02/13/17 00:29; Start 02/12/17 at 23:45; Stop 02/13/17 at 00:44; Status DC Ceftriaxone Sodium 1000 mg/ Sodium Chloride 100 ml @ 200 mls/hr Q24H IV Last administered on 02/15/17 21:59; Start 02/13/17 at 22:00 Azithromycin/ Sodium Chloride (Zithromax Inj/ NS 250 ml Inj) 250 ml @ 250 mls/ hr Q24H IV Last administered on 02/15/17 23:12; Start 02/13/17 at 23:00 Budesonide/ Formoterol Fumarate (Symbicort 160-4.5 Inh) 2 puff Q12HR INH Last administered on 02/16/17 08:19; Start 02/13/17 at 09:00 Sodium Chloride (NS Flush) 2 ml UNSCH PRN IV FLUSH FLUSH AFTER USING IV ACCESS ; Start 02/13/17 at 00:45 Sodium Chloride (NS Flush) 2 ml BID IV FLUSH Last administered on 02/16/17 08: 20; Start 02/13/17 at 09:00 Ondansetron HCl (Zofran Inj) 4 mg Q6H PRN IVP NAUSEA OR VOMITING Last administered on 02/13/17 03:48; Start 02/13/17 at 00:45 Acetaminophen (Tylenol) 650 mg Q6H PRN PO FEVER/PAIN SCALE 1 TO 2; Start at 00:45 Acetaminophen/ Hydrocodone Bitart ([place] 5-325 Mg) 1 tab Q4H PRN PO PAIN SCALE 3 TO 5 Last administered on 02/13/17 03:48; Start 02/13/17 at 00:45; Stop 02/13/17 at 07:41; Status DC Morphine Sulfate (Morphine Inj) 2 mg Q3H PRN IV Pain 6-10; Start 02/13/17 at 00: 45; Stop 02/13/17 at 07:41; Status DC Senna/Docusate Sodium (Leslie-Colace) 1 tab BID PO Last administered on 02/15/17 08:32; Start 02/13/17 at 09:00 Magnesium Hydroxide (Milk Of Magnesia Liq) 30 ml Q12H PRN PO MILD - MODERATE CONSTIPATION Last administered on 02/15/17 08:36; Start 02/13/17 at 00:45 Sennosides (Senokot) 17.2 mg Q12H PRN PO MODERATE - SEVERE CONSTIPATION; Start 02/13/17 at 00:45 Bisacodyl (Dulcolax Supp) 10 mg DAILY PRN RECTAL SEVERE CONSITIPATION; Start at 00:45 Lactulose (Lactulose Liq) 30 ml DAILY PRN PO SEVERE CONSITIPATION; Start at 00:45 Atenolol (Tenormin) 100 mg DAILY PO Last administered on 02/16/17 08:20; Start 02/13/17 at 09:00 Zolpidem Tartrate 10 mg 10 mg HS PRN PO INSOMNIA; Start 02/13/17 at 01:00 Nitroglycerin/ Dextrose (Nitroglycerin-Dextrose Inj) 250 ml @ 0 mls/hr TITRATE PRN IV BP >180 Last administered on 02/13/17 02:03; Start 02/13/17 at 02:00 Miscellaneous Information 1 Q361D XX Last administered on 02/13/17 02:00; Start 02/13/17 at 02:00 Chlorhexidine Gluconate (Chlorhexidine 2% Cloth) 3 pack Taper DAILY@04 TOP Last administered on 02/13/17 03:37; Start 02/13/17 at 04:00; Stop 02/09/18 at 03 :59 Chlorhexidine Gluconate (Chlorhexidine 2% Cloth) 3 pack UNSCH PRN TOP HYGIENIC CARE; Start 02/13/17 at 02:00 Clonidine (Catapres) 0.1 mg Q6H PRN PO SBP>160, DBP>90 Last administered on 02/15 12:27; Start 02/13/17 at 07:45 Enalaprilat (Vasotec Inj) 1.25 mg Q6H PRN IV PUSH SBP>160, DBP>90; Start at 07:45 Lisinopril (Prinivil) 20 mg DAILY PO Last administered on 02/15/17 08:32; Start 02/13/17 at 09:00; Stop 02/15/17 at 14:51; Status DC Morphine Sulfate (Oramorph Sr) 60 mg BID PO Last administered on 02/16/17 08:20 ; Start 02/13/17 at 09:00 Oxycodone/ Acetaminophen (Percocet 10-325 Mg) 2 tab Q6HR PO Last administered on 02/16/17 11:48; Start 02/13/17 at 12:00 Temazepam (Restoril) 30 mg HS PRN PO INSOMNIA Last administered on 02/15/17 21: 59; Start 02/13/17 at 07:45 Naloxone HCl (Narcan Inj) 0.4 mg UNSCH PRN IV RESPIRATORY RATE LESS THAN 10; Start 02/13/17 at 09:00 Pneumococcal Polyvalent Vaccine (Pneumovax-23 Inj) 25 mcg ONCE ONCE IM ; Start 02/14/17 at 10:00; Stop 02/14/17 at 10:01; Status DC Influenza Virus Vaccine (Flu (Quadrivalent) Vaccine Inj) 0.5 ml ONCE ONCE IM ; Start 02/14/17 at 10:00; Stop 02/14/17 at 10:01; Status Cancel Diatrizoate Meglum/ Diatrizoate Sod ( Gastrolivia Liq) 18 ml ONCE ONCE PO Last administered on 02/14/17 09:37; Start 02/14/17 at 09:30; Stop 02/14/17 at 09: 31; Status DC Iohexol (Omnipaque 350 Inj) 97 ml STK-MED ONCE IV Last administered on 11:52; Start 02/14/17 at 11:52; Stop 02/14/17 at 11:53; Status DC Gadodiamide (Omniscan Pf Inj) 18 ml STK-MED ONCE IV Last administered on 08:12; Start 02/15/17 at 08:12; Stop 02/15/17 at 08:13; Status DC Lisinopril (Prinivil) 40 mg DAILY PO Last administered on 02/16/17 08:19; Start 02/16/17 at 09:00 Family History His family history was reviewed and is noncontributory to his injury. No history of familial disorders cerebral aneurysms brain tumors Social History He is a smoker. Denies alcohol abuse. She denies illicit drug use Physical Exam Vital Signs Vital Signs Date Time Temp Pulse Resp B/P Pulse Ox O2 Delivery O2 Flow Rate FiO2 02/16/17 12:00 96.9 52 18 179/91 99 02/16/17 08:20 Room Air 02/16/17 08:20 59 02/16/17 08:00 97.7 59 18 223/120 100 02/16/17 04:00 95.7 58 20 183/82 98 02/16/17 03:53 Room Air 02/15/17 20:00 96.2 57 20 132/88 97 02/15/17 18:58 50 02/15/17 16:00 96.9 58 18 147/91 99 02/15/17 14:34 163/88 02/15/17 14:00 97.9 67 18 163/88 97 Physical Exam The patient is alert, awake and oriented to time, place and person. Speech is fluent. Higher cognitive functions are normal. Cranial nerve examination demonstrates the pupils to be equal, round, and reactive to light. Extra-ocular movements are intact. Facial motor and sensory function are normal and symmetrical. Gross hearing is intact, bilaterally. The uvula is midline and elevates symmetrically with the soft palate. Sternocleidomastoid and trapezius muscles have normal and symmetrical strength. Other cranial nerves are intact. Neck is soft and supple. Cervical spine has a full range of motion in anterior flexion, extension, lateral bending, and rotation without pain. There is no tenderness to palpation to the spinous processes or paraspinal muscles. Muscle testing reveals normal bulk and tone overall without rigidity, spasticity , fasciculations, or atrophy. Muscle strength is 5/5 in all muscle groups of both upper extremities including deltoid, biceps, triceps, brachioradialis, wrist extension and final operations technician. In the lower extremities, strength is 5/5 in both iliopsoas, quadriceps, hamstrings, 4+/5 in his right dorsiflexion, and extensor hallicus longus. Sensory examination is intact to light touch and sharp/dull discrimination in both the upper extremities, and decreased in a right L5 and S1 dermatome Deep tendon reflexes are 2+ and symmetrical in the biceps, triceps, and brachioradialis, bilaterally, in the upper extremities. In the lower extremities , the patellar and Achilles are 2+, bilaterally. There is a bilateral plantar flexion response. Hoffmanns sign is negative. There is no clonus or other abnormal reflexes noted. Cerebellar examination is intact to [id number] test, rapid rhythmic alternating motion. There is no dysmetria, dysdiadochokinesia, truncal ataxia Result Diagram: 02/14/17 0504 02/14/17 0504 Imaging Last Impressions Lumbar Spine MRI 02/15/17 0000 Signed Impressions: Service Date/Time: Wednesday, February 15, 2017 07:49 - CONCLUSION: 1. Moderate multilevel degenerative change throughout the lumbar spine. At L3-4 there is severe facet hypertrophy causing minimal anterolisthesis and the facet hypertrophy along with a diffuse disc bulge causes moderate spinal canal stenosis. 2. There is a moderate size central left paracentral disc protrusion at L5-S1 with mass effect on the left S1 nerve root. Juan Kelly MD Abdomen/Pelvis CT 02/14/17 Signed Impressions: Service Date/Time: Tuesday, February 14, 2017 11:50 - CONCLUSION: 1. No obstruction or acute inflammatory changes. 2. Mild fatty infiltration of the liver. 3. Tortuosity and mild atherosclerosis of the abdominal aorta. 4. Mild left base infiltrate again seen. Juan Zhao MD Lumbar Spine X-Ray 02/13/17 Signed Impressions: Service Date/Time: Monday, February 13, 2017 20:06 - CONCLUSION: No evidence of compression deformity or spondylolisthesis. Adeel Rowe MD Chest X-Ray 02/12/172234 Signed Impressions: Service Date/Time: February 22:34 - CONCLUSION: The lungs are clear. Adeel Rowe MD CT Angiography 02/12/172234 Signed Impressions: Service Date/Time: February 23:07 - CONCLUSION: 1. No evidence of pulmonary embolism. 2. Left lower lobe pneumonia Samm Clemente MD Assessment and Plan Assessment and Plan (1) Hypertensive urgency ICD Code: I16.0 Status: Acute (2) PNA (pneumonia) ICD Code: J18.9 Status: Acute (3) Hemoptysis ICD Code: R04.2 Status: Acute (4) Tobacco abuse ICD Code: Z72.0 Status: Acute Attending Statement Low back pain with right L5 and S1 radiculopathy. I review his MRI of the lumbar spine. I discussed with the patient this of treatment treatment including, conservative management, pain management by an interventional automotive painter, or a surgical decompression, which should always be a last resort. He has more pressing issues Hypertensive Urgency: Secondary to Non-compliance, reports stopping all BP medications 1wk ago. He was counselled on importance of compliance w/ medications and close follow up w/ PCP. MRA to rule out renal artery stenosis Pneumonia, CTA Pulm negative for PE, LLL Rocephin/Zithro in ER, will continue aggressive pulmonary toilette, nasotracheal suction, and breathing treatments with nebulizers. Hemoptysis: reports episode of small hemoptysis, CTA negative for PE as above, no h/o or evidence of CHF, likely secondary to acute PNA. Check Sputum/Cultures , continue w/ IV Abx Tobacco Abuse: Pt counselled, NicoDerm/Ativan prn if needed. Daily PT and OT Nutrition. Tolerating Oral diet Renal. Continue to monitor closely urine output, BUN and creatinine Endocrine. Continue to Monitor serial Acu checks and SSI as needed in detail ID continue to monitor for signs of infection Continue Protonix for stress ulcer prophylaxis Continue Musa hose and SCD's for DVT prophylaxis Further recommendations will be provided depending on the patient's clinical evaluation and follow up studies. Jay George MD Feb 16, 2017 13:40
[2017-02-16] MEDS: cloNIDine HCL 0.1 MG TAB PO PRN (14:36)
--- NOTE | 2017-02-16 17:51 | HHI.PR ---
Subjective Remarks No immediate surgical intervention recommended by neurosurgery. Patient's blood pressures are uncontrolled again today. MRA of the renal arteries is in process. Objective Vital Signs Date Time Temp Pulse Resp B/P Pulse Ox O2 Delivery O2 Flow Rate FiO2 02/16/17 12:00 96.9 52 18 179/91 99 02/16/17 08:20 Room Air 02/16/17 08:20 59 02/16/17 08:00 97.7 59 18 223/120 100 02/16/17 04:00 95.7 58 20 183/82 98 02/16/17 03:53 Room Air 02/15/17 20:00 96.2 57 20 132/88 97 02/15/17 18:58 50 I/O 02/15/17 02/15/17 02/15/17 02/16/17 02/16/17 02/16/17 07:00 15:00 23:00 07:00 15:00 23:00 Intake Total 480 ml 480 ml 240 ml 320 ml Output Total 300 ml 700 ml Balance -300 ml -220 ml 480 ml 240 ml 320 ml Intake Oral 480 ml 480 ml 240 ml 320 ml IV Total 0 ml Output Urine Total 300 ml 700 ml # Voids 1 1 # Bowel Movements 1 0 Result Diagram: 02/14/17 0504 02/14/17 0504 Objective Remarks GENERAL: NAD, A&Ox3 HEAD: Normocephalic. NECK: Supple, trachea midline. No lymphadenopathy. EYES: No scleral icterus. No injection or drainage. CARDIOVASCULAR: Regular rate and rhythm without murmurs, gallops, or rubs. RESPIRATORY: Breath sounds equal bilaterally. No accessory muscle use. GASTROINTESTINAL: Abdomen soft, non-tender, nondistended. MUSCULOSKELETAL: No cyanosis, or edema. Tenderness at back. SKIN: Warm and dry. NEURO: No focal neurological deficitis. A/P Problem List: (1) PNA (pneumonia) ICD Code: J18.9 (2) Hypertensive urgency ICD Code: I16.0 (3) Hemoptysis ICD Code: R04.2 (4) Hypertensive emergency ICD Code: I16.1 (5) Tobacco abuse ICD Code: Z72.0 Assessment and Plan Assessment and Plan 56-year-old male admitted secondary to hemoptysis and hypertensive emergency. He is discovered to have pneumonia. MRA to evaluate for renal artery stenosis. No immediate surgical treatment needed for lumbar and sacral spine findings. Continue to follow blood pressures. Blood pressure treatments adjusted again to attempt to obtain control. Hemoptysis Improving Follow till hemoptysis is resolved. Avoiding blood thinners Hypertensive emergency Etiology for hemoptysis may be related to hypertension Blood pressure medications reinitiated and adjusted and currently patient has good control. Monitor for any recurrence Community-acquired pneumonia Continue Rocephin and azithromycin Follow CBC White blood cell count is improving thus far Back pain Pelvic pain, abdominal pain Lumbar x-rays show no etiology CT abdomen pending Nicotine dependence NicoDerm as needed DVT prophylaxis SCDs Problem Qualifiers (1) PNA (pneumonia): Qualified Code: J18.1 - Pneumonia of left lower lobe due to infectious organism Nolberto Corea MD Feb 16, 2017 17:51
[2017-02-16] MEDS ORDERED: amLODIPine BESYLATE 5 MG TAB PO ONE (19:00)
[2017-02-16 20:00] VITALS: BP 156/82; PULSE 54; RESP 18; TEMP 97.5; O2SAT 98
[2017-02-16] MEDS: cefTRIAXone INJ 1,000 MG in SODIUM CHLORIDE 0.9% INJ 100 ML IV SCH (20:29)
[2017-02-16] MEDS: TEMAZEPAM 15 MG CAP PO PRN (20:35)
[2017-02-16] MEDS: AZITHROMYCIN INJ 500 MG in SODIUM CHLOR 0.9% 250 ML INJ 250 ML IV SCH (23:37)
[2017-02-17] VITALS: BP 147/73; PULSE 57; RESP 18; TEMP 98.6; O2SAT 97
[2017-02-17 04:00] VITALS: BP 139/77; PULSE 62; RESP 18; TEMP 97.7; O2SAT 96
[2017-02-17] MEDS: oxyCODONE/ACETAMINOPHEN 10 MG/325 MG TAB PO SCH ×3 (05:43→16:57)
[2017-02-17 06:41] VITALS: PULSE 55
[2017-02-17 08:00] VITALS: BP 167/86; PULSE 58; PULSE 60; RESP 18; TEMP 97; O2SAT 98
[2017-02-17] MEDS: ATENOLOL 100 MG TAB PO SCH (08:53)
[2017-02-17] MEDS: LISINOPRIL 20 MG TAB PO SCH (08:53)
[2017-02-17] MEDS: DOCUSATE SODIUM 50 MG/SENNA 8.6 MG TAB PO SCH (08:53)
[2017-02-17] MEDS: MORPHINE SULFATE 60 MG CONTROLLED RELEASE TAB PO SCH (08:55)
[2017-02-17] MEDS: SODIUM CHLORIDE 0.9% FLUSH 10 ML FLUSH IV FLUSH SCH (09:00)
[2017-02-17] MEDS: BUDESONIDE-FORMOTEROL 160/4.5 MCG INHALER INH SCH (09:00)
[2017-02-17] MEDS ORDERED: GADODIAMIDE PF 287 MG/ML 10 ML VIAL (for RAD MRI) IV ONE (10:23)
--- NOTE | 2017-02-17 11:13 | RADRPT ---
EXAM DATE/TIME: 02/17/2017 09:30 [facility] COMPARISON: No previous studies available for comparison. INDICATIONS : Hypertension. Stenosis. CONTRAST: 30 cc Omniscan (gadodiamide) IV MEDICAL HISTORY : Hypertension. SURGICAL HISTORY : Umbilical hernia repair. Bilateral carpal tunnel repair. ENCOUNTER: Subsequent ACUITY: 3 day PAIN SCORE: 0/10 LOCATION: abdomen. TECHNIQUE: Bolus infused MR angiography was performed. The data was postprocessed with a variety of visualizati on algorithms including full-volume maximum-intensity projection, multiplanar sliding thin slab refor mation, and curved planar reformation. FINDINGS: ABDOMINAL AORTA: The lumen is smooth without significant narrowing or aneurysmal dilatation. The proximal celiac and s uperior mesenteric arteries are patent and normal in diameter. RENAL ARTERIES: There are solitary renal arteries bilaterally. Right renal artery: 2 renal arteries originating [id number] from the aorta are noted. The larger renal artery demonstra paul a beaded appearance in its proximal segment. Moderate luminal compromise is evident. The smaller renal artery is patent without discrete stenosis. Left renal artery: A. single renal arteries identified. Short segmental narrowing of the proximal renal arteries identif ied. Degree stenosis is mild to moderate in severity measuring in the 30-49% range. KIDNEYS: There is symmetric renal size. There is homogeneous enhancement in the parenchyma. BIFURCATION: Normal. RIGHT PELVIS: The right common iliac, internal iliac, and external iliac vessels are patent without significant nathaniel nosis.. LEFT PELVIS: The left common iliac, internal iliac, and external iliac vessels are patent and without significant stenosis. RETROPERITONEUM: The adrenal glands are unremarkable. No adenopathy seen. CONCLUSION: 1. The dominant right renal artery has a proximal beaded appearance with moderate stenosis characteri stic of fibromuscular dysplasia. A focal high grade stenotic lesion may be present. 2. [id number] left renal artery stenosis in the 30-49% range. 3. Normal symmetric appearing kidneys. Dwayne Peña MD on February 17, 2017 at 10:53 Board Certified Radiologist. This report was verified electronically.
[2017-02-17 12:00] VITALS: BP 147/77; PULSE 61; RESP 18; TEMP 97.4; O2SAT 96
[2017-02-17] MEDS ORDERED: AMLO10 PO (15:09)
[2017-02-17] MEDS ORDERED: AZIT250T3 PO (15:09)
[2017-02-17] MEDS ORDERED: LISI-515 PO (15:09)
--- NOTE | 2017-02-17 15:12 | HHI.DS ---
Discharge Summary Admission Date Feb 13, 2017 at 12:38 am Discharge Date: Feb 17, 2017 Admitting Diagnosis Hypertensive Emergency; Hemoptysis (1) Hypertensive urgency ICD Code: I16.0 Diagnosis: Principal (2) PNA (pneumonia) ICD Code: J18.9 Diagnosis: Principal (3) Hemoptysis ICD Code: R04.2 Diagnosis: Principal (4) Tobacco abuse ICD Code: Z72.0 Diagnosis: Secondary Procedures None Brief History - From Admission This is a 56-year-old male with a PMH of HTN, Chronic Back Pain and Tobacco Abuse who presented to the ER with complaints of hemoptysis starting earlier today. Patient with multiple other complaints, reports onset of right flank and RLQ pain 1wk ago and believed he was "having a GI Bleed", however denies h/ o GI Bleed in the past, no melena, no BRBPR. Then states he went outside to do some gardening when "humidity hit me" and caused him to cough, noted hemoptysis w/ small amount of blood at which time he states he believed "I was septic". When asked about pt's knowledge of medical terminology, he states he studied pathology, however he's not a pathologist. On arrival, BP 272/143, HR 114. States his BP is "always high", on multiple medications however states he stopped all meds 1wk ago due to abdominal pain. Started on Nitro gtt in ER with improvement of BP, currently 174/103, HR 96. WBC 13.9. Chemistry unremarkable. INR normal. D-dimer negative. CXR with no acute findings. CTA Pulm negative for PE, positive for LLL PNA. S/p Rocephin/Zithro in ER. CBC/BMP: 02/14/17 0504 02/14/17 0504 Hospital Course Mr. Talbot is a 56-year-old male. He was admitted secondary to hemoptysis and hypertensive emergency. Blood pressures were difficult to control during this hospital stay. He was evaluated for renal artery stenosis and has moderate stenosis on the right mild stenosis on the left. She also had complaints of radiculopathic-type pain in the pelvic area. This was evaluated with MRI of the lumbar spine which showed some disease but no areas at risk for acute damage. Neurosurgery was consulted and has recommended conservative management with possible surgery later. Now blood pressures are better controlled and patient is medically stable for discharge home today. No further episodes of hemoptysis. Hemoptysis may have been caused by hypertensive emergency or there was a possible pneumonia which could reflect hemoptysis or infection as a cause. No signs of infection at time of discharge. Lisinopril has been increased to 40 mg by mouth daily. Amlodipine 10 mg by mouth daily has been added. Atenolol 100 mg by mouth daily has been discontinued. Patient will also be on azithromycin for 3 more days. Pt Condition on Discharge: Stable Discharge Disposition: Discharge Home Discharge Time: <= 30 minutes Discharge Instructions DIET: Follow Instructions for: As Tolerated, No Restrictions Activities you can perform: Regular-No Restrictions Follow up Referrals: Neurosurgery - As Per Protocol with Jay George MD PCP Follow-up - 2 Weeks New Medications: Azithromycin (Azithromycin) 250 Mg Tab 250 MG PO DAILY Infection #3 Ref 0 TAB Amlodipine (Norvasc) 10 Mg Tab 10 MG PO DAILY Blood Pressure Management #30 TAB Lisinopril (Lisinopril) 20 Mg Tab 40 MG PO DAILY Blood Pressure Management #30 TAB Continued Medications: Atenolol (Atenolol) 100 Mg Tab 100 MG PO DAILY Blood Pressure Management #30 Ref 0 TAB Morphine ER (Morphine ER) 60 Mg Tab 60 MG PO BID Pain Management Ref 0 TAB Oxycodone-Acetaminophen (Endocet) 10-325 mg Tab 2 TAB PO Q6HR Pain Management Ref 0 TAB Zolpidem (Zolpidem) 10 Mg Tab 10 MG PO HS PRN INSOMNIA Ref 0 TAB Discontinued Medications: Lisinopril (Lisinopril) 20 Mg Tab 20 MG PO DAILY #30 Ref 0 TAB Temazepam (Temazepam) 30 Mg Cap 30 MG PO HS PRN INSOMNIA #30 Ref 0 CAP Nolberto Corea MD Feb 17, 2017 3:12 pm
--- NOTE | 2017-02-17 16:56 | HHI.NSPN ---
Labs, Micro, & Vital Signs Results Date Time Temp Pulse Resp B/P Pulse Ox O2 Delivery O2 Flow Rate FiO2 02/17/17 12:00 97.4 61 18 147/77 96 02/17/17 08:00 97.0 58 18 167/86 98 02/17/17 06:41 55 02/17/17 04:00 97.7 62 18 139/77 96 02/17/17 00:00 98.6 57 18 147/73 97 02/16/17 20:00 97.5 54 18 156/82 98 02/17/17 06:59 Intake Total 1030 ml Output Total 0 ml Balance 1030 ml Constitutional Vital Signs Date Time Temp Pulse Resp B/P Pulse Ox O2 Delivery O2 Flow Rate FiO2 02/17/17 12:00 97.4 61 18 147/77 96 02/17/17 08:00 97.0 58 18 167/86 98 02/17/17 06:41 55 02/17/17 04:00 97.7 62 18 139/77 96 02/17/17 00:00 98.6 57 18 147/73 97 02/16/17 20:00 97.5 54 18 156/82 98 02/17/17 06:59 Intake Total 1030 ml Output Total 0 ml Balance 1030 ml Jay George MD Feb 17, 2017 16:56
== END 2017-02-17 19:10 | disposition home or self-care (01) | DRG 304 ==
LOC: NEPC 22:21 → NEDA 02-13 00:38 → N03A 02-13 02:51 → N07B 02-13 19:03
PROVIDERS: ADMIT Hospitalist; ATTEND Hospitalist
DX: I16.1 Hypertensive emergency (principal); J18.9 Pneumonia, unspecified organism; R04.2 Hemoptysis; I10 Essential (primary) hypertension; M47.26 Other spondylosis with radiculopathy, lumbar region; R10.2 Pelvic and perineal pain; F17.210 Nicotine dependence, cigarettes, uncomplicated; Z91.19 Patient's noncompliance with other medical treatment and regimen; Z53.29 Procedure and treatment not carried out because of patient's decision for other reasons
CPT/HCPCS: 71010; 71275; 72100; 72158; 74177; 80048; 80053; 80076; 83690; 85025; 85379; 85610; 85730; 87641; 93005; 96365; 96374; 96375; A9579; C8900; J0456; J0696; J2405; J7050; Q9963; Q9967